=== PATIENT | female | born 1980 | race Caucasian/White ===

== ENCOUNTER 2023-12-02 14:58 | Outpatient (CLI) | payer OTHER, SELFPAY ==
--- OUTSIDE RECORDS SUMMARY | 2023-12-02 15:00 | XMS_ITS | Referral Summary ---
Author Organization [facility] Address [address] [place] [address] Care Team Providers Care Final Cigar And Box Examiner Name Role Phone None Reported, Pcp Primary Care Provider Unavail able Source Comments Patient records contain information from all sites at [facility]. For routine questions regarding patient records, call [phone] during business hours, M-F 8:00 AM - 5:00 PM Central Time. Record requests for emergency care only can be directed to [phone] at any time.[facility] Allergies Active Allergy Reactions Criticality Noted Date Comments Loratadine Other (see comments) 09/24/2015 Medications Medication Sig Dispensed Refills Start Date End Date Status albuterol (Ventolin HFA) 90 mcg/actuation inhaler Inhale 2 puffs every 6 (six) hours as needed for wheezing or shortness of breath for up to 10 days. 18 g 03/16/2022 Active azithromycin (ZITHROMAX) 250 mg tablet 250 mg once daily for 4 days. 4 tablet 03/17/2022 Active Active Problems No known active problems Social History Tobacco Use Types Packs/Day Years Used Date Smoking Tobacco: Every Day Cigarettes Tobacco Cessation:Ready to Q uit: Not Asked; Counseling Given: Not Answered Alcohol Use Standard Drinks/Week Comments Defer 0 (1 standard drink = 0.6 oz pur e alcohol) Nutrition Answer Date Recorded Nutrition: EVOO Fat Source Unknown 03/16 Nutrition: Servings of Fruits/Vegetables per Day Not on file 03/16/2022 Dental Answer Date Recorded Dental: Regular Dentist Unknown 03/16/20 Sex and Gender Information Value Date Recorded Sex Assigned at Not on file Gender Identity Not on file Sexual Orientation Not on file Last Filed Vital Signs Vital Sign Reading Time Taken Comments Blood Pressure 139/89 03/16/2022 4:42 PM CDT Pulse - - Temperature 37.2 ??C (99 ??F) 03/16/2022 4:42 PM CDT Respiratory Rate 18 03/16/2022 5:30 PM CDT Oxygen Saturation 94% 03/16/2022 5:30 PM CDT Inhaled Oxygen Concentration - - Weight - - Height - - Body Mass Index - - Plan of Treatment Not on file Care Teams Final Cigar And Box Examiner Relationship Specialty Start Date End Date None Reported, Pcp PCP - General Family Medicine 03/16/22
--- OUTSIDE RECORDS SUMMARY | 2023-12-02 15:00 | XMS_ITS ---
Author Organization [facility] Address [address] [place] [address] Care Team Providers Care Fish Bailer Name Role Phone Unavailable Unavailable Unavailable Surgery Details Not on file Complications Check Surgery Details section. Procedure Estimated Blood Loss Check Surgery Details section. Procedure Findings Check Surgery Details section. Procedure Specimens Taken Check Surgery Details section.
--- OUTSIDE RECORDS SUMMARY | 2023-12-02 15:00 | XMS_ITS | Clinical Summary ---
Author Organization [facility] Address [address] [place] [address] Care Team Providers Care Precision Dyer Name Role Phone None Reported, Pcp Primary Care Provider Unavail able Source Comments Patient records contain information from all sites at [facility]. For routine questions regarding patient records, call [phone] during business hours, M-F 8:00 AM - 5:00 PM Central Time. Record requests for emergency care only can be directed to [phone] at any time.[facility] Allergies Active Allergy Reactions Criticality Noted Date [...] Mass Index - - Plan of Treatment Health Maintenance Due Date Last Done Comments Cervical Cancer Screening 1979 HIV Screening 1979 Hepatitis C Screening 1979 Lipid (Cholesterol) Screening 1979 Mammogram 1979 Tobacco Cessation counseling 1979 Pneumococcal vaccine (0-64 years) (1 of 2 - PCV) 10/26/1985 Hepatitis B Vaccines (1 of 3 - 19+ 3-dose series) 10/26/1998 COVID-19 Vaccine ( - 2022-2 4 season) 2023 Influenza Vaccine (#1) 2023 Depression Screening (Annual PHQ-2) 06/28/2023 DTaP,Tdap,and Td Vaccines (3 - Td or Tdap) 10/23/2026 10/23/2016, 10/10/2009 HPV Vaccines Aged Out No longer eligi ble based on patient's age to complete this topic Care Teams Precision Dyer Relationship Specialty Start Date End Date None Reported, Pcp PCP - General Family Medicine 03/16/22
--- OUTSIDE RECORDS SUMMARY | 2023-12-02 15:00 | XMS_ITS | Clinical Summary ---
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 Resolved Problems Problem Noted Date Diagnosed Date Resolved Date Papanicolaou smear of cervix with atypical squamous cells of undetermined significance (ASC-US) 07/29/2010 08/28/2013 Tobacco use disorder 07/23/2007 015 Screening for malignant neop lasm of the cervix 07/23/2007 08/01/2012 Immunizations Name Administration Dates Next Due Tdap 10/10/2009 Family History Medical History Relation Name Comments Good Health Father Good Health Mother Unknown Sister 4 Unknown Sister 5 Unknown Sister 6 Relation Name Status Comments Father Alive Maternal Grandfather Maternal Grandmother Mother Alive Paternal Grandfather Paternal Grandmother Sister 1 Alive Sister 2 Alive Sister 3 Alive Sister 4 Sister 5 Sister 6 Social History Tobacco Use Types Packs/Day Years Used Date Smoking Tobacco: Former Cigarettes 0.3 10 1 - 03/28/2014 Smokeless Tobacco: Never Tobacco Cessation:Counseling Given: Yes Alcohol Use Standard Drinks/Week Comments Yes 0 (1 standard drink = 0.6 oz pur e alcohol) 1-2 times monthly Sex and Gender Information Value Date Recorded Sex Assigned at Not on file Gender Identity Not on file Sexual Orientation Not on file Obstetrics History Para Term AB IAB SAB Ectopic Multiple Livin g Live Births 0 0 0 0 0 0 0 0 0 0 Last Filed Vital Signs Vital Sign Reading Time Taken Comments Blood Pressure 98/64 09/24/2015 2:57 PM CDT Pulse 62 09/24/2015 2:57 PM CDT Temperature 37.2 ??C (98.9 ??F) 10/18/2014 2:44 PM CD T Respiratory Rate 16 10/12/2012 11:32 AM CDT Oxygen Saturation 99% 10/18/2014 2:44 PM CDT Inhaled Oxygen Concentration - - Weight 68.5 kg (151 lb) 09/24/2015 2:57 PM CDT Height 160 cm (5' 2.99) 09/24/2015 2:57 PM CDT Body Mass Index 26.76 09/24/2015 2:57 PM CDT Plan of Treatment Health Maintenance Due Date Last Done Comments HIV for age 15-65 10/26/1994 Hepatitis C screening for age 18-79 10/26/1997 Pap test for age 21-65 07/21/2014 2, 07/21/2011, 07/21/2010, Additional history exists BMI (ht and wt on same day) for age 18+ 09/23/2016 09/24/2015 Depression screening for age 12+ 09/23/2016 09/24/2015 Tetanus booster 10/11/2019 10/10/2009, 10/10/2009 COVID-19 vaccine series (2022-24 season) 2023 Influenza for age 9-49 02/27/2024 Tdap Completed 10/10/2009 Pneumococcal series for age 6-64 Aged Out No longer eligible based on patient's age to complete this topic Procedures Procedure Name Priority Date/Time Associated Diagnosis Comments C UNIX DEVELOPER THIN PREP PAP DIAGNOSTIC IMAGED Routine 07/21/2011 2:16 PM BLADE GROOVER ASCUS favor benign from Last 3 Months or Most Recently Relevant to Health Maintenance Results * C UNIX DEVELOPER THIN PREP PAP DIAGNOSTIC IMAGED (07/21/2011 2:16 PM BLADE GROOVER) CYTOLOGY CYTOPATHOLOGY REPORT [facility] Status: Final Status ?[id number] CLINICAL INFORMATION Last Date of LMP ? :06/21/2011 Last Pap Date ?:07/21/2010 Last Pap Result ?:ASCUS ABN [place]/Bx Past 5 YRS :None Hormone Usage ?:BCP/OCP/Patch/R ing Menstrual Status ? :Regular Periods [place]/Bx done today ? :No Additional Information :None given HPV Request ?:HPV and PAP. See Separate Report. SPECIMEN SOURCE ?:Cervical/vagina l ThinPrep Vial, diagnostic SPECIMEN ADEQUACY ?:Satisfactory for evaluation Endocervical component ? present. INTERPRETATION/RES ULT Negative for intraepithelial lesion or malignancy (NIL) Organisms ??Shift in ayse suggestive of bacterial vaginosis Cytology 1st Screener ??:djs Cytology 2nd Screener ??:tll Signed by ?:tll This specimen was screened by the FDA approved ThinPrep Imaging System and manually reviewed. NOTE: ??The Pap test is a screening technique, not a diagnostic procedure. ??It is used ??primarily to screen for squamous cancers and precursor lesions. ??Published studies have shown that it is subject to both false negative and false positive results. ??The pap test should not be used as the sole means to diagnose or exclude pre-malignant and malignant lesions. COLLECTED:07/21/11 ? ACCESSIONED: ??07/22/11 ?? SIGNED: ??07/28/11 [facility] PAP [place] CODE NIL [facility] Tissue specimen (specimen) (Cervical/Vagina l) 07/21/2011 2:16 PM BLADE GROOVER 07/21/2011 2:14 PM BLADE GROOVER Angy Poon DO PATHOLOGY/CYTOLOGY [facility] [place]NAL ZIP [address] [place] [id number] from Last 3 Months or Most Recently Relevant to Health Maintenance
--- NOTE | 2023-12-02 15:20 | CRLHL7_ITS ---
For Patients: As a result of the Century Cures Act, medical imaging exams and procedure reports are released immediately into your electronic medical record. You may view this report before your referring provider. If you have questions, please contact your health care provider. BILATERAL SCREENING MAMMOGRAM WITH COMPUTER-AIDED DETECTION AND TOMOSYNTHESIS TECHNIQUE: CC and MLO views were obtained. These mammographic images have been obtained using full-field digital technique. These mammographic images were interpreted with the benefit of computer-aided detection. Breast Tomosynthesis was used in this interpretation. COMPARISON FILM: Baseline. FINDINGS: The breasts are heterogeneously dense, which may obscure small masses. IMPRESSION: There is no radiographic evidence for malignancy. ASSESSMENT: BI-RADS Category 1: Negative RECOMMENDATION: Routine screening mammogram in 1 year. A lay language report of this examination will be provided to the patient. Leo Shepard M.D. Diagnostic Radiologist [email or web address] SP/Dictated by: Leo Shepard MD @ 12/03/2023 11:32:00 AM (Electronically Signed)
== END 2023-12-02 14:59 | disposition home or self-care (01) ==
LOC: MAMMO 14:58
PROVIDERS: PCP Nurse Practitioner Family; Visit Provider Nurse Practitioner Family
DX: Z12.31 Encounter for screening mammogram for malignant neoplasm of breast (principal); R92.2 Inconclusive mammogram
CPT/HCPCS: 77063; 77067

== ENCOUNTER 2024-03-02 14:34 | Outpatient (CLI) | payer OTHER, SELFPAY ==
--- OUTSIDE RECORDS SUMMARY | 2024-03-02 14:41 | XMS_ITS | Clinical Summary ---
Author Organization [facility] Address [place], [place] [address] Care Team Providers Care Call Center Trainer Name Role Phone Unavailable Primary Care Provider [...] booster 10/11/2019 10/10/2009, 10/10/2009 COVID-19 vaccine series (2022- season) 2024 Influenza for age 9-49 02/27/2024 Tdap Completed 10/10/2009 Pneumococcal series for age 6-64 Aged Out No longer eligible based on patient's age to complete this topic Procedures Procedure Name Priority Date/Time Associated Diagnosis Comments IV TECHNICIAN THIN PREP PAP DIAGNOSTIC IMAGED Routine 07/21/2011 2:16 PM CHILD CARE ASSOCIATE TEACHER ASCUS favor benign from Last 3 Months or Most Recently Relevant to Health Maintenance Results * IV TECHNICIAN THIN PREP PAP DIAGNOSTIC IMAGED (07/21/2011 2:16 PM CHILD CARE ASSOCIATE TEACHER) CYTOLOGY CYTOPATHOLOGY REPORT [facility] Status: Final Status ?[id number] CLINICAL INFORMATION Last Date of LMP ? :06/21/2011 Last Pap Date ?:07/21/2010 Last Pap Result ?:ASCUS ABN [place]/Bx Past 5 YRS :None Hormone Usage ?:BCP/OCP/Patch/R ing Menstrual Status ? :Regular Periods [place]/Bx done today ? :No Additional Information :None [...] COLLECTED:07/21/11 ? ACCESSIONED: ??07/22/11 ?? SIGNED: ??07/28/11 [facility] PAP [place] CODE NIL [facility] Tissue specimen (specimen) (Cervical/Vagina l) 07/21/2011 2:16 PM CHILD CARE ASSOCIATE TEACHER 07/21/2011 2:14 PM CHILD CARE ASSOCIATE TEACHER Angy Poon DO PATHOLOGY/CYTOLOGY [facility] INTERNAL ZIP [address] [place] [id number] from Last 3 Months or Most Recently Relevant to Health Maintenance
--- OUTSIDE RECORDS SUMMARY | 2024-03-02 14:41 | XMS_ITS | Referral Summary ---
Author Organization [facility] Address [address] [place] [address] Care Team Providers Care Telephone Clerks Supervisor Name Role Phone None Reported, Pcp Primary Care Provider Unavail able Source Comments Patient records contain information from all sites at [facility]. For routine questions regarding patient records, call [phone] during business hours, M-F 8:00 AM - 5:00 PM Central Time. Record requests for emergency care only can be directed to [phone] at any time.[facility] Allergies Active Allergy Reactions Criticality Noted Date [...] of Treatment Not on file Care Teams Telephone Clerks Supervisor Relationship Specialty Start Date End Date None Reported, Pcp PCP - General Family Medicine 03/16/22
--- OUTSIDE RECORDS SUMMARY | 2024-03-02 14:41 | XMS_ITS | Clinical Summary ---
Author Organization [facility] Address [address] [place] [address] Care Team Providers Care Awnings Mechanic Name Role Phone None Reported, Pcp Primary Care Provider Unavail able Source Comments Patient records contain information from all sites at [facility]. For routine questions regarding patient records, call [phone] during business hours, M-F 8:00 AM - 5:00 PM Central Time. Record requests for emergency care only can be directed to [phone] at any time.[facility] Allergies Active Allergy Reactions Criticality Noted Date [...] of 3 - 19+ 3-dose series) 10/26/1998 Depression Screening (Annual PHQ-2) 06/28/2023 COVID-19 Vaccine (1 - 2022-2 4 season) 2024 Influenza Vaccine (#1) 2024 DTaP,Tdap,and Td Vaccines (3 - Td or Tdap) 10/23/2026 10/23/2016, 10/10/2009 HPV Vaccines Aged Out No longer eligi ble based on patient's age to complete this topic Care Teams Awnings Mechanic Relationship Specialty Start Date End Date None Reported, Pcp PCP - General Family Medicine 03/16/22
--- OUTSIDE RECORDS SUMMARY | 2024-03-02 14:41 | XMS_ITS ---
Author Organization [facility] Address [address] [place] [address] Care Team Providers Care Medical Clerk Name Role Phone Unavailable Unavailable Unavailable Surgery Details Not on file Complications Check Surgery Details section. Procedure Estimated Blood Loss Check Surgery Details section. Procedure Findings Check Surgery Details section. Procedure Specimens Taken Check Surgery Details section.
== END 2024-03-02 14:35 | disposition home or self-care (01) ==
PROVIDERS: PCP Nurse Practitioner Family; Visit Provider Nurse Practitioner Family
DX: N93.8 Other specified abnormal uterine and vaginal bleeding (principal); Z12.4 Encounter for screening for malignant neoplasm of cervix
CPT/HCPCS: 84443; 85025; 87624

== ENCOUNTER 2024-03-06 14:22 | Outpatient (CLI) | payer OTHER, SELFPAY ==
--- OUTSIDE RECORDS SUMMARY | 2024-03-06 14:24 | XMS_ITS | Clinical Summary ---
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 Resolved Problems Problem Noted Date Diagnosed Date Resolved Date Papanicolaou smear of cervix with atypical squamous cells of undetermined significance (ASC-US) 07/29/2010 08/28/2013 Tobacco use disorder 07/23/2007 015 Screening for malignant neop lasm of the cervix 07/23/2007 08/01/2012 Encounters Date Type Department Care Team Description 03/03/[address] [facility] [phone] Reina Washington NP from Last 3 Months Immunizations Name Administration Dates Next Due Tdap [...] booster 10/11/2019 10/10/2009, 10/10/2009 COVID-19 vaccine series ( season) 2024 Influenza for age 9-49 02/27/2024 Tdap Completed 10/10/2009 Pneumococcal series for age 6-64 Aged Out No longer eligible based on patient's age to complete this topic Procedures Procedure Name Priority Date/Time Associated Diagnosis Comments THERAPIST OCCUPATIONAL THIN PREP PAP DIAGNOSTIC IMAGED Routine 07/21/2011 2:16 PM EMPLOYMENT PROGRAM REPRESENTATIVE ASCUS favor benign from Last 3 Months or Most Recently Relevant to Health Maintenance Results * THERAPIST OCCUPATIONAL THIN PREP PAP DIAGNOSTIC IMAGED (07/21/2011 2:16 PM EMPLOYMENT PROGRAM REPRESENTATIVE) CYTOLOGY CYTOPATHOLOGY REPORT [facility] Status: Final Status ?[id number] CLINICAL INFORMATION Last Date of LMP ? :06/21/2011 Last Pap Date ?:07/21/2010 Last Pap Result ?:ASCUS ABN [place]/Bx Past 5 YRS :None Hormone Usage ?:BCP/OCP/Patch/R ing Menstrual Status ? :Regular Periods [place]/Bx done today ? :No Additional Information :None [...] COLLECTED:07/21/11 ? ACCESSIONED: ??07/22/11 ?? SIGNED: ??07/28/11 [facility] PAP [place] CODE NIL [facility] Tissue specimen (specimen) (Cervical/Vagina l) 07/21/2011 2:16 PM EMPLOYMENT PROGRAM REPRESENTATIVE 07/21/2011 2:14 PM EMPLOYMENT PROGRAM REPRESENTATIVE Angy Poon DO PATHOLOGY/CYTOLOGY [facility] INTERNAL ZIP [address] [place] [id number] from Last 3 Months or Most Recently Relevant to Health Maintenance
--- OUTSIDE RECORDS SUMMARY | 2024-03-06 14:25 | XMS_ITS ---
Author Organization [facility] Address [address] [place] [address] Care Team Providers Care Construction Administrator Name Role Phone Unavailable Unavailable Unavailable Surgery Details Not on file Complications Check Surgery Details section. Procedure Estimated Blood Loss Check Surgery Details section. Procedure Findings Check Surgery Details section. Procedure Specimens Taken Check Surgery Details section.
--- OUTSIDE RECORDS SUMMARY | 2024-03-06 14:25 | XMS_ITS | Clinical Summary ---
Author Organization [facility] Address [address] [place] [address] Care Team Providers Care Chief Cook Name Role Phone None Reported, Pcp Primary Care Provider Unavail able Source Comments Patient records contain information from all sites at [facility]. For routine questions regarding patient records, call [phone] during business hours, M-F 8:00 AM - 5:00 PM Central Time. Record requests for emergency care only can be directed to [phone] at any time.[facility] Allergies Active Allergy Reactions Criticality Noted Date [...] age to complete this topic Care Teams Chief Cook Relationship Specialty Start Date End Date None Reported, Pcp PCP - General Family Medicine 03/16/22
--- OUTSIDE RECORDS SUMMARY | 2024-03-06 14:25 | XMS_ITS | Referral Summary ---
Author Organization [facility] Address [address] [place] [address] Care Team Providers Care Seaman Officer Name Role Phone None Reported, Pcp Primary Care Provider Unavail able Source Comments Patient records contain information from all sites at [facility]. For routine questions regarding patient records, call [phone] during business hours, M-F 8:00 AM - 5:00 PM Central Time. Record requests for emergency care only can be directed to [phone] at any time.[facility] Allergies Active Allergy Reactions Criticality Noted [...] of Treatment Not on file Care Teams Seaman Officer Relationship Specialty Start Date End Date None Reported, Pcp PCP - General Family Medicine 03/16/22
--- NOTE | 2024-03-06 14:45 | CRLHL7_ITS ---
For Patients: As a result of the Century Cures Act, medical imaging exams and procedure reports are released immediately into your electronic medical record. You may view this report before your referring provider. If you have questions, please contact your health care provider. INDICATION: Abnormal perimenopausal bleeding TECHNIQUE: Transabdominal and transvaginal scanning was performed. Transvaginal scanning was performed to optimally evaluate the endometrium and adnexa. Ovarian blood flow was evaluated with color-flow and pulsed Doppler. COMPARISON: None. FINDINGS: The uterus is normal in size, measuring 8.3 x 4.2 x 4.7 cm. A subserosal 1.0 cm fibroid rises from the anterior uterine body. The endometrial stripe is normal in thickness at 7 mm. The ovaries are normal in size and contain several follicles. The right ovary measures 3.1 x 2.4 x 1.4 cm and left 3.8 x 2.0 x 1.9 cm. Ovarian blood flow is demonstrated with color-flow and pulsed Doppler. No adnexal mass is evident. No free fluid is demonstrated. IMPRESSION: 1. Normal endometrial stripe thickness at 7 mm. 2. Subserosal 1.0 cm fibroid arising anterior body. Dictated by Bj Perry MD @ 03/07/2024 4:54:27 AM (Electronically Signed)
== END 2024-03-06 14:23 | disposition home or self-care (01) ==
LOC: US 14:23
PROVIDERS: PCP Nurse Practitioner Family; Visit Provider Nurse Practitioner Family
DX: N93.8 Other specified abnormal uterine and vaginal bleeding (principal); D25.2 Subserosal leiomyoma of uterus
CPT/HCPCS: 76830; 76856